=== PATIENT | male | born 1980 | race American Indian/Alaskan Native ===

== ENCOUNTER 2018-05-05 09:23 | Inpatient (IN) | payer OTHER ==
[2018-05-05 10:13] LABS: Hematocrit 34.9 % (35.5-45.6); Hemoglobin 11.4 gm/dl (11.8-15.2); Mean Corpuscular HGB Conc 33 % (32-34); Mean Corpuscular Volume 69 fl (84-94); Platelet Count 421 K/mm3 (140-440); Red Blood Count 5.04 M/mm3 (3.65-5.03); Red Cell Distribution Width 16.3 % (13.2-15.2)
[2018-05-05] MEDS ORDERED: NACL 0.9% 1000 ML 1,000 ML IV ONE ×2 (10:18→10:50)
[2018-05-05] MEDS ORDERED: ZOFRAN IV ONE (10:18)
[2018-05-05] MEDS ORDERED: MORPHINE IV ONE ×2 (10:18→10:50)
[2018-05-05] MEDS ORDERED: MORPHINE ONE ×2 (10:31→11:18)
[2018-05-05 10:42] LABS: Eosinophils % (Manual) 0 % (0.0-4.3); Monocytes % (Manual) 0 % (0.0-7.3); Total Cells Counted 100
[2018-05-05 10:44] LABS: Anisocytosis 1+; Poikilocytosis 1+
[2018-05-05 10:45] LABS: Hypochromasia Few; Ovalocytes Few; Platelet Estimate Consistent w Auto; Sickle Cells 1+; Target Cells 2+
[2018-05-05 10:47] LABS: Alanine Aminotransferase 18 units/L (7-56); Albumin 4.7 g/dL (3.9-5); BUN/Creatinine Ratio 9; Blood Urea Nitrogen 6 mg/dL (9-20); Calcium 10.2 mg/dL (8.4-10.2); Hemolysis Index 19
[2018-05-05] MEDS ORDERED: TORADOL IVP ONE (10:50)
--- NOTE | 2018-05-05 10:54 | Emergency Department Report ---
ED General Adult HPI - General Chief complaint: Sickle Cell Crisis Stated complaint: SICKLE CELL Time Seen by Provider: 05/05/18 10:13 Source: patient Mode of arrival: Wheelchair Limitations: No Limitations - History of Present Illness Initial comments: Patient presents to the emergency department with chief complaint of left leg pain. Patient has history of sickle cell who states she is in crisis currently. Patient was recently discharged from [facility] for sickle cell crisis. Patient states that he normally has pain either in his back, arms, or legs with this crisis. Patient denies chest pain, normal parenchyma or headache. Has not taken any medications at home to try to relieve his discomfort. -: Gradual Location: lower extremity Radiation: non-radiation Severity scale (0 -10): 10 Quality: sharp, constant Consistency: constant Improves with: none Worsens with: none Associated Symptoms: denies other symptoms Treatments Prior to Arrival: none - Related Data Home Medications Medication Instructions Recorded Confirmed Last Taken Folic Acid [Folvite] 1 mg PO QDAY 02/16/16 02/16/16 01/16/16 Allergies Allergy/AdvReac Type Severity Reaction Status Date / Time No Known Allergies Allergy Verified 05/05/18 09:42 ED Review of Systems ROS: Stated complaint: SICKLE CELL Other details as noted in HPI Comment: All other systems reviewed and negative Constitutional: denies: chills, fever Eyes: denies: eye pain, eye discharge, vision change ENT: denies: ear pain, throat pain Respiratory: denies: cough, shortness of breath, wheezing Cardiovascular: denies: chest pain, palpitations Endocrine: no symptoms reported Gastrointestinal: denies: abdominal pain, nausea, diarrhea Genitourinary: denies: urgency, dysuria Musculoskeletal: denies: back pain, joint swelling, arthralgia Skin: denies: rash, lesions Neurological: denies: headache, weakness, paresthesias Psychiatric: denies: anxiety, depression Hematological/Lymphatic: denies: easy bleeding, easy bruising ED Past Medical Hx - Past Medical History Hx Sickle Cell Disease: Yes - Social History Smoking Status: Never Smoker Substance Use Type: None - Medications Home Medications: Home Medications Medication Instructions Recorded Confirmed Last Taken Type Folic Acid [Folvite] 1 mg PO QDAY 02/16/16 02/16/16 01/16/16 History ED Physical Exam - General Limitations: No Limitations General appearance: alert, other (mild distress) - Head Head exam: Present: atraumatic, normocephalic - Eye Eye exam: Present: normal appearance, PERRL, EOMI - ENT ENT exam: Present: mucous membranes dry - Neck Neck exam: Present: normal inspection - Respiratory Respiratory exam: Present: normal lung sounds bilaterally. Absent: respiratory distress, wheezes, rales - Cardiovascular Cardiovascular Exam: Present: normal rhythm, tachycardia. Absent: systolic murmur, diastolic murmur, rubs, gallop - GI/Abdominal GI/Abdominal exam: Present: soft, normal bowel sounds. Absent: distended, tenderness - Rectal Rectal exam: Present: deferred - Extremities Exam Extremities exam: Present: normal inspection - Back Exam Back exam: Present: normal inspection - Neurological Exam Neurological exam: Present: alert, oriented X3, CN II-XII intact. Absent: motor sensory deficit - Psychiatric Psychiatric exam: Present: normal affect, normal mood - Skin Skin exam: Present: warm, dry, intact, normal color. Absent: rash ED Course Vital Signs 05/05/18 05/05/18 05/05/18 09:42 12:33 12:45 Temperature 98.7 F Pulse Rate 56 L 71 67 Respiratory 18 13 10 L Rate Blood Pressure 149/98 141/98 141/98 O2 Sat by Pulse 100 98 98 Oximetry 05/05/18 05/05/18 13:00 13:15 Temperature Pulse Rate 63 65 Respiratory 13 13 Rate Blood Pressure 136/88 136/88 O2 Sat by Pulse 95 97 Oximetry ED Medical Decision Making - Lab Data Result diagrams: 05/05/18 09:57 05/05/18 10:20 Lab Results 05/05/18 05/05/18 Range/Units 09:57 10:20 WBC 20.4 H (4.5-11.0) K/mm3 RBC 5.04 H (3.65-5.03) M/mm3 Hgb 11.4 L (11.8-15.2) gm/dl Hct 34.9 L (35.5-45.6) % MCV 69 L (84-94) fl MCH 23 L (28-32) pg MCHC 33 (32-34) % RDW 16.3 H (13.2-15.2) % Plt Count 421 (140-440) K/mm3 Add Manual Diff Complete Total Counted 100 Seg Neuts % (Manual) 92.0 H (40.0-70.0) % Band Neutrophils % 0 % Lymphocytes % (Manual) 7.0 L (13.4-35.0) % Reactive Lymphs % (Man) 0 % Monocytes % (Manual) 0 (0.0-7.3) % Eosinophils % (Manual) 0 (0.0-4.3) % Basophils % (Manual) 1.0 (0.0-1.8) % Metamyelocytes % 0 % Myelocytes % 0 % Promyelocytes % 0 % Blast Cells % 0 % Nucleated RBC % Not Reportable Seg Neutrophils # Man 18.8 H (1.8-7.7) K/mm3 Band Neutrophils # 0.0 K/mm3 Lymphocytes # (Manual) 1.4 (1.2-5.4) K/mm3 Abs React Lymphs (Man) 0.0 K/mm3 Monocytes # (Manual) 0.0 (0.0-0.8) K/mm3 Eosinophils # (Manual) 0.0 (0.0-0.4) K/mm3 Basophils # (Manual) 0.2 H (0.0-0.1) K/mm3 Metamyelocytes # 0.0 K/mm3 Myelocytes # 0.0 K/mm3 Promyelocytes # 0.0 K/mm3 Blast Cells # 0.0 K/mm3 WBC Morphology Not Reportable Hypersegmented Neuts Not Reportable Hyposegmented Neuts Not Reportable Hypogranular Neuts Not Reportable Smudge Cells Not Reportable Toxic Granulation Not Reportable Toxic Vacuolation Not Reportable Dohle Bodies Not Reportable Pelger-Huet Anomaly Not Reportable Ben Rods Not Reportable Platelet Estimate Consistent w auto Clumped Platelets Not Reportable Plt Clumps, EDTA Not Reportable Large Platelets Not Reportable Giant Platelets Not Reportable Platelet Satelliting Not Reportable Plt Morphology Comment Not Reportable RBC Morphology Not Reportable Dimorphic RBCs Not Reportable Polychromasia Not Reportable Hypochromasia Few Poikilocytosis 1+ Anisocytosis 1+ Microcytosis Not Reportable Macrocytosis Not Reportable Spherocytes Not Reportable Pappenheimer Bodies Not Reportable Sickle Cells 1+ Target Cells 2+ Tear Drop Cells Not Reportable Ovalocytes Few Helmet Cells Not Reportable Perera[place] Bodies Not Reportable [place] Rings Not Reportable Patti Cells Not Reportable Bite Cells Not Reportable Crenated Cell Not Reportable Elliptocytes Not Reportable Acanthocytes (Spur) Not Reportable Rouleaux Not Reportable Hemoglobin C Crystals Not Reportable Schistocytes Not Reportable Malaria parasites Not Reportable Percent Retic 5.84 H (0.78-2.58) % Ed Bodies Not Reportable Hem Pathologist Commnt No Sodium 137 (137-145) mmol/L Potassium 4.2 (3.6-5.0) mmol/L Chloride 96.9 L (98-107) mmol/L Carbon Dioxide 24 (22-30) mmol/L Anion Gap 20 mmol/L BUN 6 L (9-20) mg/dL Creatinine 0.7 L (0.8-1.5) mg/dL Estimated GFR > 60 ml/min BUN/Creatinine Ratio 9 % Glucose 133 H (75-100) mg/dL Calcium 10.2 (8.4-10.2) mg/dL Total Bilirubin 1.60 H (0.1-1.2) mg/dL AST 24 (5-40) units/L ALT 18 (7-56) units/L Alkaline Phosphatase 88 (35-129) units/L Lactate Dehydrogenase 259 H (91-180) units/L Total Protein 8.8 H (6.3-8.2) g/dL Albumin 4.7 (3.9-5) g/dL Albumin/Globulin Ratio 1.1 % - Medical Decision Making The patient had no relief of pain with Toradol, morphine, Dilaudid. Discussed results with patient Critical care attestation.: If time is entered above; I have spent that time in minutes in the direct care of this critically ill patient, excluding procedure time. ED Disposition Clinical Impression: Sickle cell crisis Disposition: OP ADMIT IP TO THIS HOSP Is pt being admited?: No Does the pt Need Aspirin: No Condition: Stable Instructions: Sickle Cell Crisis (ED) Referrals: PRIMARY CARE, [Primary Care Provider] - 3-5 Days
[2018-05-05] MEDS ORDERED: DILAUDID IV ONE (12:21)
[2018-05-05] MEDS ORDERED: NACL 0.9% 1000 ML IV ONE (13:48)
[2018-05-05] MEDS ORDERED: MAXIPIME/NS 2 GM/100 ML 2 GM/100 ML BAG IV ONE ×2 (13:49→17:00)
[2018-05-05] MEDS ORDERED: NACL 0.9% 1000 ML 1,000 ML IV SCH (14:00)
[2018-05-05] MEDS ORDERED: ZOFRAN IV PRN (14:06)
[2018-05-05] MEDS: DILAUDID IM PRN ×2 (14:47→17:44)
[2018-05-05 17:51] LABS: Bilirubin,Urine NEG (Negative); Blood,Urine NEG (Negative); Color,Urine Yellow (Yellow); Mucus,Urine FEW /HPF; Protein,Urine <15 mg/dL mg/dL (Negative); Urobilinogen,Urine < 2.0 mg/dL (<2.0)
--- NOTE | 2018-05-05 19:04 | History and Physical Report ---
History of Present Illness Date of examination: 05/05/18 Date of admission: 05/05/18 13:57 Chief complaint: Diffuse joint pain/SCD/Pain crisis History of present illness: patient seen/examined in bed, resting, claiming diffuse joint pain, rated as 7- 8/10.He presented to the ER with CC of diffuse joint pain, work up in the ER showed elevated WBC at 20,000, hgb stable, he denies any CP.He usually goes to [facility].He is admitted for sxs control, and management.He will be treated as per STD tx with hydration, pain control, and lab monitoring. Past History Past Medical History: anemia Social history: lives with family Family history: no significant family history Medications and Allergies Allergies Allergy/AdvReac Type Severity Reaction Status Date / Time No Known Allergies Allergy Verified 05/05/18 09:42 Home Medications Medication Instructions Recorded Confirmed Last Taken Type No Known Home Medications [No 05/05/18 05/05/18 Unknown History Reported Home Medications] Active Meds: Active Medications Hydromorphone HCl (Dilaudid) 1 mg IM Q3HR PRN PRN Reason: pain Stop: 05/05/18 20:30 Last Admin: 05/05/18 17:44 Dose: 1 mg Documented by: Dextrose/Sodium Chloride (D5ns 0.2%) 1,000 mls @ 250 mls/hr IV DIRECT MAYKEL Sodium Chloride (Nacl 0.9% 1000 Ml) 1,000 mls @ 125 mls/hr IV DIRECT MAYKEL Last Admin: 05/05/18 16:34 Dose: 125 mls/hr Documented by: Ondansetron HCl (Zofran) 4 mg IV Q4HR PRN PRN Reason: Nausea Stop: 05/05/18 20:30 Review of Systems Constitutional: chronic pain Musculoskeletal: low back pain, shooting leg pain Exam - Constitutional Vitals: Temp Pulse Resp BP Pulse Ox 97.7 F 61 20 142/95 96 05/05/18 16:45 05/05/18 16:45 05/05/18 16:45 05/05/18 16:45 05/05/18 16:45 General appearance: Present: mild distress - EENT Eyes: Present: PERRL ENT: hearing intact, clear oral mucosa - Neck Neck: Present: supple, normal ROM - Respiratory Respiratory effort: normal Respiratory: bilateral: CTA - Cardiovascular Heart Sounds: Present: S1 & S2. Absent: rub, click - Extremities Extremities: pulses symmetrical, No edema Peripheral Pulses: within normal limits - Abdominal General gastrointestinal: Present: soft, non-tender, non-distended, normal bowel sounds Male genitourinary: Present: deferred - Rectal Rectal Exam: deferred - Integumentary Integumentary: Present: clear, warm, dry - Musculoskeletal Musculoskeletal: gait normal, strength equal bilaterally - Psychiatric Psychiatric: appropriate mood/affect, intact judgment & insight - Neurologic Neurologic: CNII-XII intact, moves all extremities Results - Labs CBC & Chem 7: 05/05/18 09:57 05/05/18 10:20 Labs: Abnormal lab results 05/05/18 05/05/18 05/05/18 Range/Units 09:57 10:20 17:07 WBC 20.4 H (4.5-11.0) K/mm3 RBC 5.04 H (3.65-5.03) M/mm3 Hgb 11.4 L (11.8-15.2) gm/dl Hct 34.9 L (35.5-45.6) % MCV 69 L (84-94) fl MCH 23 L (28-32) pg RDW 16.3 H (13.2-15.2) % Seg Neuts % (Manual) 92.0 H (40.0-70.0) % Lymphocytes % (Manual) 7.0 L (13.4-35.0) % Seg Neutrophils # Man 18.8 H (1.8-7.7) K/mm3 Basophils # (Manual) 0.2 H (0.0-0.1) K/mm3 Percent Retic 5.84 H (0.78-2.58) % Chloride 96.9 L (98-107) mmol/L BUN 6 L (9-20) mg/dL Creatinine 0.7 L (0.8-1.5) mg/dL Glucose 133 H (75-100) mg/dL Lactic Acid 2.40 H* (0.7-2.0) mmol/L Total Bilirubin 1.60 H (0.1-1.2) mg/dL Lactate Dehydrogenase 259 H (91-180) units/L Total Protein 8.8 H (6.3-8.2) g/dL Assessment and Plan - Patient Problems (1) Sickle cell crisis Current Visit: Yes Status: Acute Plan to address problem: See notes. (2) Anemia Current Visit: Yes Status: Acute Plan to address problem: monitor labs. (3) Sickle cell pain crisis Current Visit: Yes Status: Acute Plan to address problem: pain control, (4) Dehydration Current Visit: Yes Status: Acute Plan to address problem: hydration
[2018-05-05] MEDS ORDERED: BENADRYL IV PRN (19:13)
[2018-05-05] MEDS: DILAUDID IV PRN (22:12)
[2018-05-05] MEDS: D5NS 0.2% 1,000 ML IV SCH (22:47)
[2018-05-06] MEDS: D5NS 0.2% 1,000 ML IV SCH ×3 (03:31→21:40)
[2018-05-06] MEDS: DILAUDID IV PRN ×5 (03:32→20:12)
--- NOTE | 2018-05-06 19:49 | Progress Note ---
Assessment and Plan - Patient Problems (1) Sickle cell crisis Current Visit: Yes Status: Acute Plan to address problem: See notes. (2) Anemia Current Visit: Yes Status: Acute Plan to address problem: monitor labs. (3) Sickle cell pain crisis Current Visit: Yes Status: Acute Plan to address problem: pain control, (4) Dehydration Current Visit: Yes Status: Acute Plan to address problem: hydration Subjective Date of service: 05/06/18 Interval history: patient seen/examined, resting in bed, no new issues at this time.Will continue with current management. Objective - Constitutional Vitals: Vital Signs - 12hr 05/06/18 05/06/18 05/06/18 08:15 11:23 16:27 Temperature 98.2 F 98.0 F Pulse Rate 63 61 Respiratory 18 14 Rate Blood Pressure 138/97 127/82 O2 Sat by Pulse 96 98 94 Oximetry General appearance: Present: mild distress, well-nourished - EENT Eyes: PERRL, EOM intact ENT: hearing intact, clear oral mucosa Ears: bilateral: normal - Neck Neck: supple, normal ROM - Respiratory Respiratory effort: normal Respiratory: bilateral: CTA - Breasts Breasts: deferred - Cardiovascular Rhythm: regular Heart Sounds: Present: S1 & S2. Absent: gallop, rub Extremities: pulses intact, No edema, normal color, Full ROM - Gastrointestinal General gastrointestinal: Present: soft, non-tender, non-distended, normal bowel sounds Rectal Exam: deferred - Genitourinary Male genitourinary: deferred - Integumentary Integumentary: clear, warm, dry - Musculoskeletal Musculoskeletal: 1, strength equal bilaterally - Neurologic Neurologic: moves all extremities - Psychiatric Psychiatric: memory intact, appropriate mood/affect, intact judgment & insight - Labs CBC & Chem 7: 05/05/18 09:57 05/05/18 10:20 Medications & Allergies - Medications Allergies/Adverse Reactions: Allergies No Known Allergies Allergy (Verified 05/05/18 09:42) Home Medications: Home Medications Medication Instructions Recorded Confirmed Last Taken Type No Known Home Medications [No 05/05/18 05/05/18 Unknown History Reported Home Medications] Active Medications: Generic Name Dose Route Start Last Admin Trade Name Freq PRN Reason Stop Dose Admin Diphenhydramine HCl 25 mg 05/05/18 19:16 Benadryl IV Q3HR PRN Itching Hydromorphone HCl 2 mg 05/05/18 19:11 05/06/18 15:07 Dilaudid IV 2 mg Q3H PRN Administration Pain , Severe (7-10) Dextrose/Sodium Chloride 1,000 mls @ 250 mls/hr 05/05/18 10:00 05/06/18 08:04 D5ns 0.2% IV 250 mls/hr DIRECT MAYKEL Administration Ceftriaxone Sodium 1 gm in 50 mls @ 100 mls/hr 05/06/18 19:30 Rocephin/Ns 1 Gm/50 Ml IV Q24HR MAYKEL Protocol
[2018-05-06] MEDS: BENADRYL IV PRN (20:11)
[2018-05-06] MEDS: ROCEPHIN/NS 1 GM/50 ML 1 GM/50 ML BAG IV SCH (20:11)
[2018-05-07] MEDS: DILAUDID IV PRN ×4 (00:02→19:20)
[2018-05-07] MEDS: PERCOCET 5/325 PO PRN ×4 (01:46→22:03)
[2018-05-07] MEDS: D5NS 0.2% 1,000 ML IV SCH ×4 (02:16→22:03)
[2018-05-07] MEDS: BENADRYL IV PRN ×3 (04:29→19:21)
[2018-05-07] MEDS: ROCEPHIN/NS 1 GM/50 ML 1 GM/50 ML BAG IV SCH (10:19)
[2018-05-07] MEDS: MEGACE PO SCH (10:20)
--- NOTE | 2018-05-07 14:40 | Progress Note ---
Assessment and Plan - Patient Problems (1) Sickle cell crisis Current Visit: Yes Status: Acute Plan to address problem: See notes. (2) Anemia Current Visit: Yes Status: Acute Plan to address problem: monitor labs. (3) Sickle cell pain crisis Current Visit: Yes Status: Acute Plan to address problem: pain control, (4) Dehydration Current Visit: Yes Status: Acute Plan to address problem: hydration Subjective Date of service: 05/07/18 Interval history: patient seen/examined, resting in bed, no new issues at this time.Will continue with current management. Patient seen/examined, resting in bed, NAD new.Will look into d/c tomorrow. Objective - Constitutional Vitals: Vital Signs - 12hr 05/07/18 05/07/18 05/07/18 02:46 04:25 04:55 Temperature Pulse Rate Respiratory 18 18 18 Rate Blood Pressure O2 Sat by Pulse Oximetry 05/07/18 05/07/18 05/07/18 05:07 10:00 11:13 Temperature 99.5 F 98.1 F Pulse Rate 70 90 Respiratory 16 18 Rate Blood Pressure 153/102 135/91 O2 Sat by Pulse 94 95 95 Oximetry General appearance: Present: mild distress, well-nourished - EENT Eyes: PERRL, EOM intact ENT: hearing intact, clear oral mucosa Ears: bilateral: normal - Neck Neck: supple, normal ROM - Respiratory Respiratory effort: normal Respiratory: bilateral: CTA - Breasts Breasts: deferred - Cardiovascular Rhythm: regular Heart Sounds: Present: S1 & S2. Absent: gallop, rub Extremities: pulses intact, No edema, normal color, Full ROM - Gastrointestinal General gastrointestinal: Present: soft, non-tender, non-distended, normal bowel sounds Rectal Exam: deferred - Genitourinary Male genitourinary: deferred - Integumentary Integumentary: clear, warm, dry - Musculoskeletal Musculoskeletal: 1, strength equal bilaterally - Neurologic Neurologic: moves all extremities - Psychiatric Psychiatric: memory intact, appropriate mood/affect, intact judgment & insight - Labs CBC & Chem 7: 05/05/18 09:57 05/05/18 10:20 Medications & Allergies - Medications Allergies/Adverse Reactions: Allergies No Known Allergies Allergy (Verified 05/05/18 09:42) Home Medications: Home Medications Medication Instructions Recorded Confirmed Last Taken Type No Known Home Medications [No 05/05/18 05/05/18 Unknown History Reported Home Medications] Active Medications: Generic Name Dose Route Start Last Admin Trade Name Freq PRN Reason Stop Dose Admin Diphenhydramine HCl 25 mg 05/05/18 19:16 05/07/18 13:13 Benadryl IV 25 mg Q3HR PRN Administration Itching Hydromorphone HCl 2 mg 05/05/18 19:11 05/07/18 13:07 Dilaudid IV 2 mg Q3H PRN Administration Pain , Severe (7-10) Dextrose/Sodium Chloride 1,000 mls @ 250 mls/hr 05/05/18 10:00 05/07/18 13:13 D5ns 0.2% IV 250 mls/hr DIRECT MAYKEL Administration Ceftriaxone Sodium 1 gm in 50 mls @ 100 mls/hr 05/06/18 19:30 05/07/18 10:19 Rocephin/Ns 1 Gm/50 Ml IV 100 mls/hr Q24HR MAYKEL Administration Protocol Megestrol Acetate 800 mg 05/07/18 10:00 05/07/18 10:20 Megace PO 800 mg QDAY MAYKEL Administration Oxycodone/Acetaminophen 2 tab 05/06/18 20:43 05/07/18 07:58 Percocet 5/325 PO 2 tab Q6H PRN Administration Pain, Moderate (4-6)
[2018-05-08] MEDS: DILAUDID IV PRN ×4 (01:30→20:24)
[2018-05-08] MEDS: BENADRYL IV PRN ×4 (01:30→20:24)
[2018-05-08] MEDS: D5NS 0.2% 1,000 ML IV SCH ×4 (03:50→22:54)
[2018-05-08] MEDS: PERCOCET 5/325 PO PRN ×3 (05:23→18:57)
[2018-05-08 06:02] LABS: Basophils # (Auto) 0.1 K/mm3 (0.0-0.1); Basophils % (Auto) 0.6 % (0.0-1.8); Eosinophils # (Auto) 0.2 K/mm3 (0.0-0.4); Eosinophils % (Auto) 1.9 % (0.0-4.3); Hematocrit 31.8 % (35.5-45.6); Hemoglobin 10.3 gm/dl (11.8-15.2); Lymphocytes # (Auto) 2.8 K/mm3 (1.2-5.4); Lymphocytes % (Auto) 21.3 % (13.4-35.0); Mean Corpuscular HGB Conc 32 % (32-34); Mean Corpuscular Volume 71 fl (84-94); Monocytes # (Auto) 1.2 K/mm3 (0.0-0.8); Monocytes % (Auto) 9.4 % (0.0-7.3); Red Blood Count 4.51 M/mm3 (3.65-5.03); Red Cell Distribution Width 17.5 % (13.2-15.2)
[2018-05-08 06:59] LABS: BUN/Creatinine Ratio 9; Blood Urea Nitrogen 7 mg/dL (9-20); Hemolysis Index 2
[2018-05-08 07:05] LABS: Platelet Count 293 K/mm3 (140-440)
[2018-05-08] MEDS: ROCEPHIN/NS 1 GM/50 ML 1 GM/50 ML BAG IV SCH (09:00)
[2018-05-08] MEDS: MEGACE PO SCH (09:00)
--- NOTE | 2018-05-08 17:45 | Progress Note ---
Assessment and Plan - Patient Problems (1) Sickle cell crisis Current Visit: Yes Status: Acute Plan to address problem: See notes. (2) Anemia Current Visit: Yes Status: Acute Plan to address problem: monitor labs. (3) Sickle cell pain crisis Current Visit: Yes Status: Acute Plan to address problem: pain control, (4) Dehydration Current Visit: Yes Status: Acute Plan to address problem: hydration Subjective Date of service: 05/08/18 Interval history: patient seen/examined, resting in bed, no new issues at this time.Will continue with current management. Patient seen/examined, resting in bed, NAD new.Will look into d/c tomorrow. patient seen/examined, rated his pain at 7/10. will definitely send him home tomorrow. caseworker intake to help him with medicaid application process. Objective - Constitutional Vitals: Vital Signs - 12hr 05/08/18 05/08/18 05/08/18 06:23 12:18 16:33 Temperature 98.3 F 98.1 F Pulse Rate 74 70 Respiratory 18 20 22 Rate Blood Pressure 136/88 132/92 O2 Sat by Pulse 95 95 Oximetry General appearance: Present: mild distress, well-nourished - EENT Eyes: PERRL, EOM intact ENT: hearing intact, clear oral mucosa Ears: bilateral: normal - Neck Neck: supple, normal ROM - Respiratory Respiratory effort: normal Respiratory: bilateral: CTA - Breasts Breasts: deferred - Cardiovascular Rhythm: regular Heart Sounds: Present: S1 & S2. Absent: gallop, rub Extremities: pulses intact, No edema, normal color, Full ROM - Gastrointestinal General gastrointestinal: Present: soft, non-tender, non-distended, normal bowel sounds Rectal Exam: deferred - Genitourinary Male genitourinary: deferred - Integumentary Integumentary: clear, warm, dry - Musculoskeletal Musculoskeletal: 1, strength equal bilaterally - Neurologic Neurologic: moves all extremities - Psychiatric Psychiatric: memory intact, appropriate mood/affect, intact judgment & insight - Labs CBC & Chem 7: 05/08/18 05:10 05/08/18 05:10 Labs: Abnormal lab results 05/08/18 05/08/18 Range/Units 05:10 05:10 WBC 13.3 H (4.5-11.0) K/mm3 Hgb 10.3 L (11.8-15.2) gm/dl Hct 31.8 L (35.5-45.6) % MCV 71 L (84-94) fl MCH 23 L (28-32) pg RDW 17.5 H (13.2-15.2) % [place] % (Auto) 9.4 H (0.0-7.3) % [place] # 1.2 H (0.0-0.8) K/mm3 Seg Neutrophils # 8.9 H (1.8-7.7) K/mm3 Percent Retic 6.51 H (0.78-2.58) % Potassium 3.3 L D (3.6-5.0) mmol/L Chloride 97.9 L (98-107) mmol/L BUN 7 L (9-20) mg/dL Glucose 130 H (75-100) mg/dL Medications & Allergies - Medications Allergies/Adverse Reactions: Allergies No Known Allergies Allergy (Verified 05/05/18 09:42) Home Medications: Home Medications Medication Instructions Recorded Confirmed Last Taken Type No Known Home Medications [No 05/05/18 05/05/18 Unknown History Reported Home Medications] Active Medications: Generic Name Dose Route Start Last Admin Trade Name Freq PRN Reason Stop Dose Admin Diphenhydramine HCl 25 mg 05/07/18 17:27 05/08/18 15:56 Benadryl IV 25 mg Q4H PRN Administration Itching Hydromorphone HCl 2 mg 05/07/18 17:27 05/08/18 15:56 Dilaudid IV 2 mg Q4H PRN Administration Pain , Severe (7-10) Dextrose/Sodium Chloride 1,000 mls @ 250 mls/hr 05/05/18 10:00 05/08/18 13:30 D5ns 0.2% IV 250 mls/hr DIRECT MAYKEL Administration Ceftriaxone Sodium 1 gm in 50 mls @ 100 mls/hr 05/06/18 19:30 05/08/18 09:00 Rocephin/Ns 1 Gm/50 Ml IV 100 mls/hr Q24HR MAYKEL Administration Protocol Megestrol Acetate 800 mg 05/07/18 10:00 05/08/18 09:00 Megace PO 800 mg QDAY MAYKEL Administration Oxycodone/Acetaminophen 2 tab 05/06/18 20:43 05/08/18 12:20 Percocet 5/325 PO 2 tab Q6H PRN Administration Pain, Moderate (4-6)
[2018-05-09] MEDS: PERCOCET 5/325 PO PRN ×3 (02:07→16:30)
[2018-05-09] MEDS: D5NS 0.2% 1,000 ML IV SCH ×4 (02:56→16:31)
[2018-05-09] MEDS: DILAUDID IV PRN ×2 (05:26→12:45)
[2018-05-09] MEDS: BENADRYL IV PRN ×2 (05:26→12:46)
[2018-05-09] MEDS: ROCEPHIN/NS 1 GM/50 ML 1 GM/50 ML BAG IV SCH (09:45)
[2018-05-09] MEDS: MEGACE PO SCH (09:45)
[2018-05-09 16:43] VITALS: BP 132/96
--- NOTE | 2018-05-09 18:30 | Discharge Summary ---
Providers - Providers Date of Admission: 05/05/18 13:57 Date of discharge: 05/09/18 Attending physician: CHARLI HUGHES Primary care physician: [employer] Hospitalization Reason for admission: SCD/pain crisis Condition: Stable Hospital course: Patient presented to the ER, with pain crisis, treated accordingly with hydration, pain control, and lab monitoring. He did fairly well with his treatment, seen/examined today, and stable clinically. He is getting discharged today. He will continue with [employer], until ,he gets his own insurance. He has been advised on how to.I will give him some pain meds to get him through. Disposition: DC- TO HOME OR SELFCARE - Discharge Diagnoses (1) Sickle cell crisis Status: Acute (2) Anemia Status: Chronic (3) Sickle cell pain crisis Status: Resolved (4) Dehydration Status: Resolved Core Measure Documentation - Palliative Care Palliative Care/ Comfort Measures: Not Applicable - Core Measures Any of the following diagnoses?: none Exam - Constitutional Vitals: Temp Pulse Resp BP Pulse Ox 98.2 F 78 18 132/96 97 05/09/18 16:41 05/09/18 16:41 05/09/18 16:41 05/09/18 16:41 05/09/18 16:41 General appearance: Present: no acute distress, well-nourished - EENT Eyes: Present: PERRL ENT: hearing intact, clear oral mucosa - Neck Neck: Present: supple, normal ROM - Respiratory Respiratory effort: normal Respiratory: bilateral: CTA - Cardiovascular Heart Sounds: Present: S1 & S2. Absent: rub, click - Extremities Extremities: pulses symmetrical, No edema Peripheral Pulses: within normal limits - Abdominal General gastrointestinal: Present: soft, non-tender, non-distended, normal bowel sounds Male genitourinary: Present: deferred - Rectal Rectal Exam: deferred - Integumentary Integumentary: Present: clear, warm, dry - Musculoskeletal Musculoskeletal: gait normal, strength equal bilaterally - Psychiatric Psychiatric: appropriate mood/affect, intact judgment & insight - Neurologic Neurologic: CNII-XII intact, moves all extremities Plan Activity: no restrictions Diet: regular Follow up with: PRIMARY CARE, [Primary Care Provider] - 3-5 Days
== END 2018-05-09 19:27 | disposition home or self-care (01) | DRG 812 ==
LOC: ED 09:23 → 3A 13:57
PROVIDERS: ADMIT Internal Medicine Hematology & Oncology; ATTEND Internal Medicine Hematology & Oncology
DX: D57.00 Hb-SS disease with crisis, unspecified (principal); E86.0 Dehydration; D64.9 Anemia, unspecified; G89.29 Other chronic pain
CPT/HCPCS: 36415; 80048; 80053; 81001; 82140; 83615; 85007; 85025; 85045; 87040; 87086; 87116; 96361; 96374; 96375; 96376; G0378; J0692; J0696; J1170; J1200; J1885; J2270; J2405; J7030